=== PATIENT | female | born 1985 | race Caucasian/White ===

== ENCOUNTER 2019-11-01 16:40 | Inpatient (IN) | payer BC ==
[2019-11-01] MEDS ORDERED: Sodium Chloride 0.9% 10 ML Syringe FLUSH PRN (16:45)
[2019-11-01] MEDS ORDERED: Oxytocin/Lactated Ringers 10 UNIT/1,000 ML BAG IV SCH ×2 (16:45)
[2019-11-01] MEDS ORDERED: Ondansetron 4 MG/2 ML SDV IVPUSH PRN (16:45)
[2019-11-01] MEDS: Lactated Ringers 1,000 ML IV SCH ×2 (17:30→21:00)
[2019-11-01] MEDS ORDERED: diphenhydrAMINE 50 MG/ML SDV IVPUSH PRN (19:42)
[2019-11-01] MEDS ORDERED: Bupivacaine/fentaNYL/NS 100 ML Bag EPIDUR PRN (19:42)
[2019-11-01] MEDS ORDERED: fentaNYL 100 MCG/2 ML SDV EPIDUR PRN (19:42)
[2019-11-01] MEDS ORDERED: ePHEDrine 50 MG/ML SDV IVPUSH PRN (19:42)
--- NOTE | 2019-11-01 20:15 | PCM.LDHP ---
L&D History of Present Illness - General Date of Service: 11/01/19 Admit Problem/Dx: Patient Status Order with Admit Dx/Problem 11/01/19 16:46 Patient Status [ADT] Routine Admission Diagnosis/Problem Admission Diagnosis/Problem Source of Information: Patient History Limitations: Reports: No Limitations - History of Present Illness Introduction:: 34 year old G1 with elevated blood pressures in clinic. Gradually elevating over past weeks. 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: Social & Family History - Tobacco Use Smoking Status *Q: Never Smoker Second Hand Smoke Exposure: No - Caffeine Use Caffeine Use: Reports: None - Recreational Drug Use Recreational Drug Use: No H&P Review of Systems - Review of Systems: Review Of Systems: See Below General: Reports: No Symptoms HEENT: Reports: No Symptoms Pulmonary: Reports: No Symptoms Cardiovascular: Reports: No Symptoms Gastrointestinal: Reports: No Symptoms Genitourinary: Reports: No Symptoms Musculoskeletal: Reports: No Symptoms Skin: Reports: No Symptoms Psychiatric: Reports: No Symptoms Neurological: Reports: No Symptoms Hematologic/Lymphatic: Reports: No Symptoms Immunologic: Reports: No Symptoms L&D Exam - Exam Exam: See Below - Vital Signs Vital Signs: Last Vital Signs Temp 37.6 C 11/01/19 16:46 Pulse 104 H 11/01/19 16:46 Resp 16 11/01/19 16:46 BP 136/84 11/01/19 16:46 Pulse Ox Weight: 87.997 kg - OB Specific Contraction Intensity: Moderate to Strong Movement: Active Heart Tones: Present Heart Rate (FHR) Variability: Moderate (6-25 bmp) - Lobo Score Lobo Score Cervix Position: Midposition Lobo Score Consistency: Soft Lobo Score Effacement: 51-70% Lobo Score Dilation: 3-4 cm Lobo Score Infant's Station: -2 Lobo Score Total: 8 - Exam General: Alert, Oriented HEENT: PERRLA, Conjunctiva Clear, EACs Clear, EOMI, Hearing Intact, Mucosa Moist & [place], Nares Patent, Normal Nasal Septum, Posterior Pharynx Clear, TMs Clear Neck: Supple, Trachea Midline Lungs: Clear to Auscultation, Normal Respiratory Effort Cardiovascular: Regular Rate, Regular Rhythm GI/Abdominal Exam: Normal Bowel Sounds, Soft, Non-Tender, No Organomegaly, No Distention, No Abnormal Bruit, No Mass, Pelvis Stable Back Exam: Normal Inspection, Full Range of Motion Extremities: Normal Inspection, Normal Range of Motion, Non-Tender, No Pedal Edema, Normal Capillary Refill Skin: Warm, Dry, Intact Neurological: Cranial Nerves Intact, Reflexes Equal Bilateral Psychiatric: Alert, Normal Affect, Normal Mood - Patient Data Lab Results Last 24 hrs: Laboratory Results - last 24 hr 11/01/19 11/01/19 11/01/19 Range/Units 16:50 17:16 17:16 WBC 10.02 (3.98-10.04) K/mm3 RBC 3.98 (3.98-5.22) M/mm3 Hgb 11.0 L (11.2-15.7) gm/dl Hct 34.4 (34.1-44.9) % MCV 86.4 (79.4-94.8) fl MCH 27.6 (25.6-32.2) pg MCHC 32.0 L (32.2-35.5) g/dl RDW Std Deviation 43.2 (36.4-46.3) fL Plt Count 281 (182-369) K/mm3 MPV 10.7 (9.4-12.3) fl Neut % (Auto) 77.4 H (34.0-71.1) % Lymph % (Auto) 14.6 L (19.3-51.7) % [place] % (Auto) 6.5 (4.7-12.5) % Eos % (Auto) 0.8 (0.7-5.8) Baso % (Auto) 0.0 L (0.1-1.2) % Neut # (Auto) 7.76 H (1.56-6.13) K/mm3 Lymph # (Auto) 1.46 (1.18-3.74) K/mm3 [place] # (Auto) 0.65 H (0.24-0.36) K/mm3 Eos # (Auto) 0.08 (0.04-0.36) K/mm3 Baso # (Auto) 0.00 L (0.01-0.08) K/mm3 Sodium 139 (136-145) mEq/L Potassium 3.3 L (3.5-5.1) mEq/L Chloride 105 (98-107) mEq/L Carbon Dioxide 22 (21-32) mEq/L Anion Gap 15.3 H (5-15) BUN 7 (7-18) mg/dL Creatinine 0.6 (0.55-1.02) mg/dL Est Cr Clr Drug Dosing TNP Estimated GFR (MDRD) > 60 (>60) mL/min BUN/Creatinine Ratio 11.7 L (14-18) Glucose 103 (74-106) mg/dL Calcium 9.1 (8.5-10.1) mg/dL Total Bilirubin 0.3 (0.2-1.0) mg/dL AST 17 (15-37) U/L ALT 20 (14-59) U/L Alkaline Phosphatase 121 H (46-116) U/L Total Protein 6.5 (6.4-8.2) g/dl Albumin 2.6 L (3.4-5.0) g/dl Globulin 3.9 gm/dL Albumin/Globulin Ratio 0.7 L (1-2) Ur Random Creatinine 73.1 (30.0-125.0) mg/dL U Random Total Protein 31.6 H (0.0-11.8) mg/dL Protein/Creatinin Ratio 432.3 H (0-149) mg/g Result Diagrams: 11/01/19 17:16 11/01/19 17:16 Problem List Initiated/Reviewed/Updated: Yes Orders Last 24hrs: Active Orders 24 hr Category Date Time Status Patient Status [ADT] Routine ADT 11/01/19 16:46 Active Activity as Tolerated [RC] PFP Care 11/01/19 16:46 Active Communication Order [RC] ASDIRECTED Care 11/01/19 16:46 Active Communication Order [RC] ASDIRECTED Care 11/01/19 19:42 Active Cooling Warming Measures [RC] ASDIRECTED Care 11/01/19 19:42 Active Heart Tones [RC] ASDIRECTED Care 11/01/19 16:47 Active Non Stress Test [RC] PER UNIT ROUTINE Care 11/01/19 16:46 Active Notify Provider [RC] ASDIRECTED Care 11/01/19 19:42 Active Notify Provider [RC] PFP Care 11/01/19 16:46 Active Notify Provider [RC] PRN Care 11/01/19 16:46 Active Oxygen Therapy [RC] ASDIRECTED Care 11/01/19 19:42 Active Peripheral IV Care [RC] . DIRECTED Care 11/01/19 16:47 Active Pulse Oximetry [RC] ASDIRECTED Care 11/01/19 19:42 Active Pump Management, Intrathecal [RC] ASDIRECTED Care 11/01/19 16:47 Active Vital Signs [RC] PER UNIT ROUTINE Care 11/01/19 16:46 Active Vital Signs [RC] Q1H Care 11/01/19 19:41 Active Regular Diet [DIET] Diet 11/01/19 Breakfast Active RAPID PLASMA REAGIN,RPR [CHEM] Routine Lab 11/01/19 17:16 Received Bupivacaine/fentaNYL/NS [fentaNYL/Bupivacaine/NS 2 MCG- Med 11/01/19 19:42 Active 0.125% 100 ML] 0 ml EPIDUR CONTINUOUS PRN Lactated Ringers [Ringers, Lactated] 1,000 ml Med 11/01/19 16:45 Active IV ASDIRECTED Ondansetron [Zofran] Med 11/01/19 16:45 Active 4 mg IVPUSH Q4H PRN Oxytocin/Lactated Ringers [Pitocin in LR 10 Units/1,000 Med 11/01/19 16:45 Active ML] 10 unit in 1,000 ml IV .CONTINUOUS Oxytocin/Lactated Ringers [Pitocin in LR 10 Units/1,000 Med 11/01/19 16:45 Active ML] 10 unit in 1,000 ml IV TITRATE Sodium Chloride 0.9% [Saline Flush] Med 11/01/19 16:45 Active 10 ml FLUSH ASDIRECTED PRN diphenhydrAMINE [Benadryl] Med 11/01/19 19:42 Active 25 mg IVPUSH Q6H PRN ePHEDrine [ePHEDrine sulfate] Med 11/01/19 19:42 Active 5 mg IVPUSH ASDIRECTED PRN fentaNYL [Sublimaze] Med 11/01/19 19:42 Active 100 mcg EPIDUR Q3H PRN Electronic Heart Tones Ext w TOCO [WOMSER] Oth 11/01/19 16:46 Ordered Routine Electronic Heart Tones Internal [WOMSER] Per Unit Oth 11/01/19 16:46 Ordered Routine Peripheral IV Insertion Adult [OM.PC] Routine Oth 11/01/19 16:46 Ordered Resuscitation Status Routine Resus Stat 11/01/19 16:45 Ordered Medication Orders Diphenhydramine HCl (Benadryl) 25 mg IVPUSH Q6H PRN PRN Reason: Itching Ephedrine Sulfate (Ephedrine Sulfate) 5 mg IVPUSH ASDIRECTED PRN PRN Reason: HYPOTENTSION Fentanyl (Sublimaze) 100 mcg EPIDUR Q3H PRN PRN Reason: Pain Fentanyl/Bupivacaine HCl (Fentanyl/Bupivacaine/Ns 2 Mcg-0.125% 100 Ml) 0 ml EPIDUR CONTINUOUS PRN PRN Reason: Pain Lactated Ringer's (Ringers, Lactated) 1,000 mls @ 100 mls/hr IV ASDIRECTED RONNY Last Admin: 11/01/19 17:30 Dose: 100 mls/hr Oxytocin/Lactated Ringer's (Pitocin In Lr 10 Units/1,000 Ml) 10 unit in 1,000 mls @ 12 mls/hr IV TITRATE RONNY; Protocol Last Admin: 11/01/19 17:34 Dose: 2 munits/min, 12 mls/hr Oxytocin/Lactated Ringer's (Pitocin In Lr 10 Units/1,000 Ml) 10 unit in 1,000 mls @ 500 mls/hr IV .CONTINUOUS RONNY Ondansetron HCl (Zofran) 4 mg IVPUSH Q4H PRN PRN Reason: Nausea/Vomiting Sodium Chloride (Saline Flush) 10 ml FLUSH ASDIRECTED PRN PRN Reason: Keep Vein Open Assessment/Plan Comment:: Admit. PIH labs Epidural prn Anticipate
[2019-11-02] MEDS ORDERED: Oxytocin/Lactated Ringers 20 UNIT/1,000 ML BAG IV SCH (01:45)
[2019-11-02] MEDS: Oxytocin/Lactated Ringers 20 UNIT/1,000 ML BAG IV SCH (02:37)
[2019-11-02] MEDS: Lactated Ringers 1,000 ML IV SCH ×3 (08:55→17:40)
[2019-11-02] MEDS ORDERED: fentaNYL 100 MCG/2 ML SDV EPIDUR PRN (14:32)
[2019-11-02] MEDS ORDERED: ePHEDrine 50 MG/ML SDV IVPUSH PRN (14:32)
[2019-11-02] MEDS ORDERED: diphenhydrAMINE 50 MG/ML SDV IVPUSH PRN (14:32)
[2019-11-02] MEDS ORDERED: Bupivacaine/fentaNYL/NS 100 ML Bag EPIDUR PRN (14:32)
--- NOTE | 2019-11-02 14:57 | PCM.PREANE ---
Preanesthetic Assessment - Anesthesia/Transfusion/Family Hx Anesthesia History: No Prior Anesthesia Transfusion History: No Prior Transfusion(s) - Review of Systems General: No Symptoms Pulmonary: No Symptoms Cardiovascular: No Symptoms Gastrointestinal: No Symptoms Neurological: No Symptoms Other: Reports: None - Physical Assessment Vital Signs: Last Vital Signs Temp 98.5 F 11/01/19 20:30 Pulse 94 11/01/19 22:00 Resp 16 11/01/19 20:30 BP 132/82 11/01/19 20:30 Pulse Ox Height: 1.57 m Weight: 87.997 kg ASA Class: 2 Mental Status: Alert & Oriented x3 Airway Class: Mallampati = 2 Dentition: Reports: Normal Dentition Thyro-Mental Finger Breadths: 3 Mouth Opening Finger Breadths: 3 ROM/Head Extension: Full Lungs: Clear to Auscultation, Normal Respiratory Effort Cardiovascular: Regular Rate, Regular Rhythm - Lab Values: Laboratory Last Values WBC 10.02 K/mm3 (3.98-10.04) 11/01/19 17:16 RBC 3.98 M/mm3 (3.98-5.22) 11/01/19 17:16 Hgb 11.0 gm/dl (11.2-15.7) L 11/01/19 17:16 Hct 34.4 % (34.1-44.9) 11/01/19 17:16 MCV 86.4 fl (79.4-94.8) 11/01/19 17:16 MCH 27.6 pg (25.6-32.2) 11/01/19 17:16 MCHC 32.0 g/dl (32.2-35.5) L 11/01/19 17:16 RDW Std Deviation 43.2 fL (36.4-46.3) 11/01/19 17:16 Plt Count 281 K/mm3 (182-369) 11/01/19 17:16 MPV 10.7 fl (9.4-12.3) 11/01/19 17:16 Neut % (Auto) 77.4 % (34.0-71.1) H 11/01/19 17:16 Lymph % (Auto) 14.6 % (19.3-51.7) L 11/01/19 17:16 Cross % (Auto) 6.5 % (4.7-12.5) 11/01/19 17:16 Eos % (Auto) 0.8 (0.7-5.8) 11/01/19 17:16 Baso % (Auto) 0.0 % (0.1-1.2) L 11/01/19 17:16 Neut # (Auto) 7.76 K/mm3 (1.56-6.13) H 11/01/19 17:16 Lymph # (Auto) 1.46 K/mm3 (1.18-3.74) 11/01/19 17:16 Cross # (Auto) 0.65 K/mm3 (0.24-0.36) H 11/01/19 17:16 Eos # (Auto) 0.08 K/mm3 (0.04-0.36) 11/01/19 17:16 Baso # (Auto) 0.00 K/mm3 (0.01-0.08) L 11/01/19 17:16 Sodium 139 mEq/L (136-145) 11/01/19 17:16 Potassium 3.3 mEq/L (3.5-5.1) L 11/01/19 17:16 Chloride 105 mEq/L (98-107) 11/01/19 17:16 Carbon Dioxide 22 mEq/L (21-32) 11/01/19 17:16 Anion Gap 15.3 (5-15) H 11/01/19 17:16 BUN 7 mg/dL (7-18) 11/01/19 17:16 Creatinine 0.6 mg/dL (0.55-1.02) 11/01/19 17:16 Est Cr Clr Drug Dosing TNP 11/01/19 17:16 Estimated GFR (MDRD) > 60 mL/min (>60) 11/01/19 17:16 BUN/Creatinine Ratio 11.7 (14-18) L 11/01/19 17:16 Glucose 103 mg/dL (74-106) 11/01/19 17:16 Calcium 9.1 mg/dL (8.5-10.1) 11/01/19 17:16 Total Bilirubin 0.3 mg/dL (0.2-1.0) 11/01/19 17:16 AST 17 U/L (15-37) 11/01/19 17:16 ALT 20 U/L (14-59) 11/01/19 17:16 Alkaline Phosphatase 121 U/L (46-116) H 11/01/19 17:16 Total Protein 6.5 g/dl (6.4-8.2) 11/01/19 17:16 Albumin 2.6 g/dl (3.4-5.0) L 11/01/19 17:16 Globulin 3.9 gm/dL 11/01/19 17:16 Albumin/Globulin Ratio 0.7 (1-2) L 11/01/19 17:16 Ur Random Creatinine 73.1 mg/dL (30.0-125.0) 11/01/19 16:50 U Random Total Protein 31.6 mg/dL (0.0-11.8) H 11/01/19 16:50 Protein/Creatinin Ratio 432.3 mg/g (0-149) H 11/01/19 16:50 RPR Non-reactive (NONREACTIVE) 11/01/19 17:16 - Allergies Allergies/Adverse Reactions: Allergies Allergy/AdvReac Type Severity Reaction Status Date / Time No Known Allergies Allergy Verified 10/28/19 15:43 - Acknowledgements Anesthesia Type Planned: Epidural Pt an Appropriate Candidate for the Planned Anesthesia: Yes Alternatives and Risks of Anesthesia Discussed w Pt/Guardian: Yes Pt/Guardian Understands and Agrees with Anesthesia Plan: Yes PreAnesthesia Questionnaire - Past Health History Medical/Surgical History: Denies Medical/Surgical History Cardiovascular History: Reports: Hypertension ( induced) 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 USE Smoking Status *Q: Never Smoker Second Hand Smoke Exposure: No Recreational Drug Use History: No - HOME MEDS Home Medications: Home Meds No122/Iron/Folic Acid [ Multi Tablet] 1 each PO DAILY 10/28/19 [History] Aspirin [[place] Aspirin] 81 mg PO DAILY 11/01/19 [History] - CURRENT (IN HOUSE) MEDS Current Meds: Current Medications Diphenhydramine HCl (Benadryl) 25 mg IVPUSH Q6H PRN PRN Reason: pruritis Ephedrine Sulfate (Ephedrine Sulfate) 5 mg IVPUSH ASDIRECTED PRN PRN Reason: Hypotension Fentanyl (Sublimaze) 100 mcg EPIDUR Q3H PRN PRN Reason: Pain Fentanyl/Bupivacaine HCl (Fentanyl/Bupivacaine/Ns 2 Mcg-0.125% 100 Ml) 100 ml EPIDUR ASDIRECTED PRN PRN Reason: Pain Lactated Ringer's (Ringers, Lactated) 1,000 mls @ 100 mls/hr IV ASDIRECTED RONNY Last Admin: 11/02/19 08:55 Dose: 100 mls/hr Oxytocin/Lactated Ringer's (Pitocin In Lr 10 Units/1,000 Ml) 10 unit in 1,000 mls @ 500 mls/hr IV .CONTINUOUS RONNY Oxytocin/Lactated Ringer's (Pitocin In Lr 20 Units/1,000 Ml) 20 unit in 1,000 mls @ 66 mls/hr IV TITRATE RONNY; Protocol Last Admin: 11/02/19 02:37 Dose: 66 mls/hr Ondansetron HCl (Zofran) 4 mg IVPUSH Q4H PRN PRN Reason: Nausea/Vomiting Sodium Chloride (Saline Flush) 10 ml FLUSH ASDIRECTED PRN PRN Reason: Keep Vein Open Discontinued Medications Diphenhydramine HCl (Benadryl) 25 mg IVPUSH Q6H PRN PRN Reason: Itching Ephedrine Sulfate (Ephedrine Sulfate) 5 mg IVPUSH ASDIRECTED PRN PRN Reason: HYPOTENTSION Fentanyl (Sublimaze) 100 mcg EPIDUR Q3H PRN PRN Reason: Pain Fentanyl/Bupivacaine HCl (Fentanyl/Bupivacaine/Ns 2 Mcg-0.125% 100 Ml) 0 ml EPIDUR CONTINUOUS PRN PRN Reason: Pain Oxytocin/Lactated Ringer's (Pitocin In Lr 10 Units/1,000 Ml) 10 unit in 1,000 mls @ 12 mls/hr IV TITRATE RONNY; Protocol Last Titration: 11/02/19 01:00 Dose: 20 munits/min, 120 mls/hr Oxytocin/Lactated Ringer's (Pitocin In Lr 20 Units/1,000 Ml) 20 unit in 1,000 mls @ 66 mls/hr IV TITRATE RONNY; Protocol
--- NOTE | 2019-11-02 16:18 | PCM.PNLD ---
Labor Progress Note - VS & Meds Vital Signs: Last Vital Signs Temp 36.9 C 11/01/19 20:30 Pulse 94 11/01/19 22:00 Resp 16 11/01/19 20:30 BP 132/82 11/01/19 20:30 Pulse Ox Active Medications: Current Medications Diphenhydramine HCl (Benadryl) 25 mg IVPUSH Q6H PRN PRN Reason: pruritis Ephedrine Sulfate (Ephedrine Sulfate) 5 mg IVPUSH ASDIRECTED PRN PRN Reason: Hypotension Fentanyl (Sublimaze) 100 mcg EPIDUR Q3H PRN PRN Reason: Pain Last Admin: 11/02/19 15:06 Dose: 100 mcg Fentanyl/Bupivacaine HCl (Fentanyl/Bupivacaine/Ns 2 Mcg-0.125% 100 Ml) 100 ml EPIDUR ASDIRECTED PRN PRN Reason: Pain Last Admin: 11/02/19 15:06 Dose: 100 ml Lactated Ringer's (Ringers, Lactated) 1,000 mls @ 100 mls/hr IV ASDIRECTED RONNY Last Admin: 11/02/19 15:07 Dose: 100 mls/hr Oxytocin/Lactated Ringer's (Pitocin In Lr 10 Units/1,000 Ml) 10 unit in 1,000 mls @ 500 mls/hr IV .CONTINUOUS RONNY Oxytocin/Lactated Ringer's (Pitocin In Lr 20 Units/1,000 Ml) 20 unit in 1,000 mls @ 66 mls/hr IV TITRATE RONNY; Protocol Last Admin: 11/02/19 02:37 Dose: 66 mls/hr Ondansetron HCl (Zofran) 4 mg IVPUSH Q4H PRN PRN Reason: Nausea/Vomiting Sodium Chloride (Saline Flush) 10 ml FLUSH ASDIRECTED PRN PRN Reason: Keep Vein Open Discontinued Medications Diphenhydramine HCl (Benadryl) 25 mg IVPUSH Q6H PRN PRN Reason: Itching Ephedrine Sulfate (Ephedrine Sulfate) 5 mg IVPUSH ASDIRECTED PRN PRN Reason: HYPOTENTSION Fentanyl (Sublimaze) 100 mcg EPIDUR Q3H PRN PRN Reason: Pain Fentanyl/Bupivacaine HCl (Fentanyl/Bupivacaine/Ns 2 Mcg-0.125% 100 Ml) 0 ml EPIDUR CONTINUOUS PRN PRN Reason: Pain Oxytocin/Lactated Ringer's (Pitocin In Lr 10 Units/1,000 Ml) 10 unit in 1,000 mls @ 12 mls/hr IV TITRATE RONNY; Protocol Last Titration: 11/02/19 01:00 Dose: 20 munits/min, 120 mls/hr Oxytocin/Lactated Ringer's (Pitocin In Lr 20 Units/1,000 Ml) 20 unit in 1,000 mls @ 66 mls/hr IV TITRATE RONNY; Protocol - Uterine Contractions Uterine Monitoring Mode: External [place] Contraction Intensity: Mild to Moderate - Monitoring Monitor Mode: External Ultrasound Heart Rate (FHR) Variability: Moderate (6-25 bmp) Strip Review: Category I - Vaginal Exam Dilation (cm): 4 Effacement (Percent): 80 Station: -2 - Labor Progress (Free Text) Labor Progress: Minimal progress over night despite 26 mu pitocin. AROM forebag.
--- NOTE | 2019-11-02 16:20 | PCM.PNLD ---
Labor Progress Note - VS & Meds Vital Signs: Last Vital Signs Temp 36.9 C 11/01/19 20:30 Pulse 94 11/01/19 22:00 Resp 16 11/01/19 20:30 BP 132/82 11/01/19 20:30 Pulse Ox Active Medications: Current Medications Diphenhydramine HCl (Benadryl) 25 mg IVPUSH Q6H PRN PRN Reason: pruritis Ephedrine Sulfate (Ephedrine Sulfate) 5 mg IVPUSH ASDIRECTED PRN PRN Reason: Hypotension Fentanyl (Sublimaze) 100 mcg EPIDUR Q3H PRN PRN Reason: Pain Last Admin: 11/02/19 15:06 Dose: 100 mcg Fentanyl/Bupivacaine HCl (Fentanyl/Bupivacaine/Ns 2 Mcg-0.125% 100 Ml) 100 ml EPIDUR ASDIRECTED PRN PRN Reason: Pain Last Admin: 11/02/19 15:06 Dose: 100 ml Lactated Ringer's (Ringers, Lactated) 1,000 mls @ 100 mls/hr IV ASDIRECTED RONNY Last Admin: 11/02/19 15:07 Dose: 100 mls/hr Oxytocin/Lactated Ringer's (Pitocin In Lr 10 Units/1,000 Ml) 10 unit in 1,000 mls @ 500 mls/hr IV .CONTINUOUS RONNY Oxytocin/Lactated Ringer's (Pitocin In Lr 20 Units/1,000 Ml) 20 unit in 1,000 mls @ 66 mls/hr IV TITRATE RONNY; Protocol Last Admin: 11/02/19 02:37 Dose: 66 mls/hr Ondansetron HCl (Zofran) 4 mg IVPUSH Q4H PRN PRN Reason: Nausea/Vomiting Sodium Chloride (Saline Flush) 10 ml FLUSH ASDIRECTED PRN PRN Reason: Keep Vein Open Discontinued Medications Diphenhydramine HCl (Benadryl) 25 mg IVPUSH Q6H PRN PRN Reason: Itching Ephedrine Sulfate (Ephedrine Sulfate) 5 mg IVPUSH ASDIRECTED PRN PRN Reason: HYPOTENTSION Fentanyl (Sublimaze) 100 mcg EPIDUR Q3H PRN PRN Reason: Pain Fentanyl/Bupivacaine HCl (Fentanyl/Bupivacaine/Ns 2 Mcg-0.125% 100 Ml) 0 ml EPIDUR CONTINUOUS PRN PRN Reason: Pain Oxytocin/Lactated Ringer's (Pitocin In Lr 10 Units/1,000 Ml) 10 unit in 1,000 mls @ 12 mls/hr IV TITRATE RONNY; Protocol Last Titration: 11/02/19 01:00 Dose: 20 munits/min, 120 mls/hr Oxytocin/Lactated Ringer's (Pitocin In Lr 20 Units/1,000 Ml) 20 unit in 1,000 mls @ 66 mls/hr IV TITRATE RONNY; Protocol - Uterine Contractions Uterine Monitoring Mode: External [place] Contraction Intensity: Mild to Moderate - Monitoring Monitor Mode: External Ultrasound Heart Rate (FHR) Variability: Moderate (6-25 bmp) Strip Review: Category I - Vaginal Exam Dilation (cm): 5 Effacement (Percent): 80 Station: -2 - Labor Progress (Free Text) Labor Progress: Epidural in place Doing well with that pain rehman. Blood pressures lower with some decreased variability, occasional late decelerations and some deep decelerations. Recovers well to position change. Consider ephedrine if no improvement.
[2019-11-02] MEDS ORDERED: Acetaminophen 325 MG Tab PO PRN (18:42)
[2019-11-02] MEDS ORDERED: Clindamycin Phosphate 900 MG in Sodium Chloride 0.9% 100 ML IV ONE (18:45)
[2019-11-02] MEDS ORDERED: Sodium Chloride 0.9% 100 ML ONE (18:59)
--- NOTE | 2019-11-02 20:11 | PCM.PNLD ---
Labor Progress Note - VS & Meds Vital Signs: Last Vital Signs Temp 36.9 C 11/01/19 20:30 Pulse 94 11/01/19 22:00 Resp 16 11/01/19 20:30 BP 132/82 11/01/19 20:30 Pulse Ox Active Medications: Current Medications Acetaminophen (Tylenol) 975 mg PO Q4H PRN PRN Reason: Fever Last Admin: 11/02/19 19:05 Dose: 975 mg Diphenhydramine HCl (Benadryl) 25 mg IVPUSH Q6H PRN PRN Reason: pruritis Ephedrine Sulfate (Ephedrine Sulfate) 5 mg IVPUSH ASDIRECTED PRN PRN Reason: Hypotension Fentanyl (Sublimaze) 100 mcg EPIDUR Q3H PRN PRN Reason: Pain Last Admin: 11/02/19 15:06 Dose: 100 mcg Fentanyl/Bupivacaine HCl (Fentanyl/Bupivacaine/Ns 2 Mcg-0.125% 100 Ml) 100 ml EPIDUR ASDIRECTED PRN PRN Reason: Pain Last Admin: 11/02/19 15:06 Dose: 100 ml Lactated Ringer's (Ringers, Lactated) 1,000 mls @ 100 mls/hr IV ASDIRECTED RONNY Last Admin: 11/02/19 17:40 Dose: 100 mls/hr Oxytocin/Lactated Ringer's (Pitocin In Lr 10 Units/1,000 Ml) 10 unit in 1,000 mls @ 500 mls/hr IV .CONTINUOUS RONNY Oxytocin/Lactated Ringer's (Pitocin In Lr 20 Units/1,000 Ml) 20 unit in 1,000 mls @ 66 mls/hr IV TITRATE RONNY; Protocol Last Admin: 11/02/19 02:37 Dose: 66 mls/hr Ondansetron HCl (Zofran) 4 mg IVPUSH Q4H PRN PRN Reason: Nausea/Vomiting Sodium Chloride (Saline Flush) 10 ml FLUSH ASDIRECTED PRN PRN Reason: Keep Vein Open Discontinued Medications Diphenhydramine HCl (Benadryl) 25 mg IVPUSH Q6H PRN PRN Reason: Itching Ephedrine Sulfate (Ephedrine Sulfate) 5 mg IVPUSH ASDIRECTED PRN PRN Reason: HYPOTENTSION Fentanyl (Sublimaze) 100 mcg EPIDUR Q3H PRN PRN Reason: Pain Fentanyl/Bupivacaine HCl (Fentanyl/Bupivacaine/Ns 2 Mcg-0.125% 100 Ml) 0 ml EPIDUR CONTINUOUS PRN PRN Reason: Pain Gentamicin Sulfate (Pharmacy To Dose - Gentamicin) 1 dose .XX ASDIRECTED RONNY Oxytocin/Lactated Ringer's (Pitocin In Lr 10 Units/1,000 Ml) 10 unit in 1,000 mls @ 12 mls/hr IV TITRATE RONNY; Protocol Last Titration: 11/02/19 01:00 Dose: 20 munits/min, 120 mls/hr Oxytocin/Lactated Ringer's (Pitocin In Lr 20 Units/1,000 Ml) 20 unit in 1,000 mls @ 66 mls/hr IV TITRATE RONNY; Protocol Clindamycin Phosphate 900 mg/ (Sodium Chloride) 106 mls @ 200 mls/hr IV ONETIME ONE Stop: 11/02/19 19:16 Last Admin: 11/02/19 19:16 Dose: 200 mls/hr Gentamicin Sulfate 100 mg/ (Sodium Chloride) 102.5 mls @ 205 mls/hr IV ONETIME ONE Stop: 11/02/19 19:29 Sodium Chloride (Normal Saline) Confirm Administered Dose 100 mls @ as directed .ROUTE .STK-MED ONE Stop: 11/02/19 19:00 - Uterine Contractions Uterine Monitoring Mode: External [place] Contraction Intensity: Mild to Moderate - Monitoring Monitor Mode: External Ultrasound Heart Rate (FHR) Variability: Moderate (6-25 bmp) Strip Review: Category II - Vaginal Exam Dilation (cm): 8 Effacement (Percent): 90 Station: -1 Cervical Position: Midposition - Labor Progress (Free Text) Labor Progress: Steady progress since last exam however febrile starting about 45 minutes ago. Antibiotics initiated for chorioamnionitis. Some deep variable decelerations and now tachycardia and occasional late decelerations. Discussed possibility of with patient and spouse. They voice understanding and wish to proceed with labor at this point.
[2019-11-02] MEDS ORDERED: Metoclopramide 10 MG/2 ML SDV IVPUSH ONE (22:04)
[2019-11-02] MEDS ORDERED: Citric Acid/Sodium Citrate Solution 30 ML Cup PO ONE (22:04)
[2019-11-02] MEDS ORDERED: Metoclopramide 10 MG/2 ML SDV ONE (22:08)
[2019-11-02] MEDS ORDERED: Citric Acid/Sodium Citrate Solution 30 ML Cup ONE (22:08)
[2019-11-02] MEDS ORDERED: Azithromycin 500 MG in Sodium Chloride 0.9% 250 ML IV ONE (22:09)
--- NOTE | 2019-11-02 22:10 | PCM.PNLD ---
Labor Progress Note - VS & Meds Vital Signs: Last Vital Signs Temp 36.9 C 11/01/19 20:30 Pulse 94 11/01/19 22:00 Resp 16 11/01/19 20:30 BP 132/82 11/01/19 20:30 Pulse Ox Active Medications: Current Medications Acetaminophen (Tylenol) 975 mg PO Q4H PRN PRN Reason: Fever Last Admin: 11/02/19 19:05 Dose: 975 mg Diphenhydramine HCl (Benadryl) 25 mg IVPUSH Q6H PRN PRN Reason: pruritis Ephedrine Sulfate (Ephedrine Sulfate) 5 mg IVPUSH ASDIRECTED PRN PRN Reason: Hypotension Fentanyl (Sublimaze) 100 mcg EPIDUR Q3H PRN PRN Reason: Pain Last Admin: 11/02/19 15:06 Dose: 100 mcg Fentanyl/Bupivacaine HCl (Fentanyl/Bupivacaine/Ns 2 Mcg-0.125% 100 Ml) 100 ml EPIDUR ASDIRECTED PRN PRN Reason: Pain Last Admin: 11/02/19 15:06 Dose: 100 ml Lactated Ringer's (Ringers, Lactated) 1,000 mls @ 100 mls/hr IV ASDIRECTED RONNY Last Admin: 11/02/19 17:40 Dose: 100 mls/hr Oxytocin/Lactated Ringer's (Pitocin In Lr 10 Units/1,000 Ml) 10 unit in 1,000 mls @ 500 mls/hr IV .CONTINUOUS RONNY Oxytocin/Lactated Ringer's (Pitocin In Lr 20 Units/1,000 Ml) 20 unit in 1,000 mls @ 66 mls/hr IV TITRATE RONNY; Protocol Last Admin: 11/02/19 02:37 Dose: 66 mls/hr Ondansetron HCl (Zofran) 4 mg IVPUSH Q4H PRN PRN Reason: Nausea/Vomiting Sodium Chloride (Saline Flush) 10 ml FLUSH ASDIRECTED PRN PRN Reason: Keep Vein Open Discontinued Medications Citric Acid/Sodium Citrate (Bicitra Solution) 30 ml PO ONETIME ONE Stop: 11/02/19 22:05 Diphenhydramine HCl (Benadryl) 25 mg IVPUSH Q6H PRN PRN Reason: Itching Ephedrine Sulfate (Ephedrine Sulfate) 5 mg IVPUSH ASDIRECTED PRN PRN Reason: HYPOTENTSION Fentanyl (Sublimaze) 100 mcg EPIDUR Q3H PRN PRN Reason: Pain Fentanyl/Bupivacaine HCl (Fentanyl/Bupivacaine/Ns 2 Mcg-0.125% 100 Ml) 0 ml EPIDUR CONTINUOUS PRN PRN Reason: Pain Gentamicin Sulfate (Pharmacy To Dose - Gentamicin) 1 dose .XX ASDIRECTED RONNY Oxytocin/Lactated Ringer's (Pitocin In Lr 10 Units/1,000 Ml) 10 unit in 1,000 mls @ 12 mls/hr IV TITRATE RONNY; Protocol Last Titration: 11/02/19 01:00 Dose: 20 munits/min, 120 mls/hr Oxytocin/Lactated Ringer's (Pitocin In Lr 20 Units/1,000 Ml) 20 unit in 1,000 mls @ 66 mls/hr IV TITRATE RONNY; Protocol Clindamycin Phosphate 900 mg/ (Sodium Chloride) 106 mls @ 200 mls/hr IV ONETIME ONE Stop: 11/02/19 19:16 Last Admin: 11/02/19 19:16 Dose: 200 mls/hr Gentamicin Sulfate 100 mg/ (Sodium Chloride) 102.5 mls @ 205 mls/hr IV ONETIME ONE Stop: 11/02/19 19:29 Last Admin: 11/02/19 20:23 Dose: 205 mls/hr Sodium Chloride (Normal Saline) Confirm Administered Dose 100 mls @ as directed .ROUTE .STK-MED ONE Stop: 11/02/19 19:00 Metoclopramide HCl (Reglan) 10 mg IVPUSH ONETIME ONE Stop: 11/02/19 22:05 - Uterine Contractions Uterine Monitoring Mode: External [place] Contraction Intensity: Mild to Moderate - Monitoring Monitor Mode: External Ultrasound Heart Rate (FHR) Variability: Moderate (6-25 bmp) Strip Review: Category II - Vaginal Exam Dilation (cm): 10 Effacement (Percent): 100 Station: -1 Cervical Position: Midposition - Labor Progress (Free Text) Labor Progress: Minimal progress with pushing, continued tachycardia, deep variables with minimal to no descent over last hour. Discussed recommendation of .
[2019-11-02] MEDS ORDERED: Bupivacaine 0.5% 30 ML SDV ONE (22:23)
[2019-11-02] MEDS ORDERED: fentaNYL 100 MCG/2 ML SDV ONE (22:30)
[2019-11-02] MEDS ORDERED: ceFAZolin 1 GM Vial ONE (22:39)
[2019-11-02] MEDS ORDERED: Oxytocin 10 Units/1 ML SDV ONE (22:40)
[2019-11-02] MEDS ORDERED: Morphine PF 10 MG/10 ML SDV ONE (23:03)
[2019-11-02] MEDS ORDERED: Lactated Ringers 1,000 ML ONE (23:08)
--- NOTE | 2019-11-02 23:31 | PCM.OPNOTE ---
- General Post-Op/Procedure Note Date of Surgery/Procedure: 11/02/19 Operative Procedure(s): primary section Findings: Viable female, weight 8#10oz, 8/9 APGARS, normal uterus tubes and ovaries, OP infant Pre Op Diagnosis: Non-reassuring monitoring, arrest of descent, chorioamnionitis Post-Op Diagnosis: Same Anesthesia Technique: Epidural Primary Surgeon: Kristie Palma Anesthesia Provider: Biju Tsai Machine Etcher: Sandi Roberson Fluid Replacement, Intraop: 1,200 Output, Urine Amount: 150 EBL in mLs: 800 Complications: None Condition: Good Free Text/Narrative:: Intake & Output 11/02/19 11/02/19 11/03/19 14:59 22:59 06:59 Intake Total 440 Balance 440 The patient was taken to the operating room where epidural anesthesia was dosed to surgical levels without difficulty. The patient was prepped and draped in the usual sterile fashion in the dorsal supine position with a leftward tilt. A Pfannenstiel skin incision was made with the scalpel and carried through to the underlying layer of fascia. The fascia was incised in the midline and extended laterally using Valdez scissors. Lana clamps were used to elevate the superior aspect of the fascial incision, which was elevated, and the underlying rectus muscles were dissected off bluntly and using Valdez scissors. Attention was then turned to the inferior aspect of the fascial incision, which in similar fashion was grasped with Lana clamps, elevated, and the underlying rectus muscles were dissected off bluntly and using the valdez. The rectus muscles were dissected in the midline. The peritoneum was entered bluntly; this incision was extended superiorly and inferiorly with good visualization of the bladder. The bladder blade was inserted. The vesicouterine peritoneum was identified and entered sharply using Metzenbaum scissors. This incision was extended laterally and the bladder flap was created digitally. The bladder blade was reinserted. The lower uterine segment was incised in a transverse fashion using the scalpel and with digital traction. Clear fluid was noted. The infant was subsequently delivered by flexing the head to the incision. Body and shoulders followed without difficulty. The cord was clamped and cut. The infant was subsequently handed to the awaiting webbing seamer pound net whose presence had been requested.. The placenta was delivered spontaneously intact with a three-vessel cord noted. The uterus was exteriorized and cleared of all clots and debris. The uterine incision was repaired in 2 layers using 0 monocryl. Hemostasis was visualized. Hemostasis was visualized bilaterally. The uterus was returned to the abdomen. The uterine incision was reexamined and it was noted to be hemostatic. The pelvis was copiously irrigated. The fascia was closed with 1 PDS suture, and the skin was closed with 3-0 monocryl. Sponge, lap, and instrument counts were correct x2. The patient was stable at the completion of the procedure and was subsequently transferred to the recovery room in stable condition.
--- NOTE | 2019-11-02 23:40 | PCM.POSTAN ---
POST ANESTHESIA ASSESSMENT - MENTAL STATUS Mental Status: Alert, Oriented - VITAL SIGNS Vital Signs: Last Vital Signs Temp 99.5 F 11/02/19 23:27 Pulse 94 11/01/19 22:00 Resp 16 11/02/19 23:27 BP 116/69 11/02/19 23:27 Pulse Ox 96 11/02/19 23:27 - RESPIRATORY Respiratory Status: Respiratory Rate WNL, Airway Patent, O2 Saturation Stable - CARDIOVASCULAR CV Status: Blood Pressure Stable, Elevated Pulse Rate - GASTROINTESTINAL GI Status: No Symptoms - PAIN Pain Score: 0 (post epidural) - POST OP HYDRATION Hydration Status: Adequate & Stable
[2019-11-02] MEDS ORDERED: Ketorolac 30 MG/ML SDV IVPUSH PRN (23:41)
[2019-11-03] MEDS ORDERED: Dextrose 5%-Lactated Ringers 1,000 ML IV SCH (00:26)
[2019-11-03] MEDS ORDERED: Gentamicin 40 MG/ML 2 ML Vial IV SCH (00:26)
[2019-11-03] MEDS ORDERED: Witch Hazel Medicated Pads 40/Jar TOP PRN (00:26)
[2019-11-03] MEDS ORDERED: Naloxone 0.4 MG/ML SDV IVPUSH PRN (00:26)
[2019-11-03] MEDS ORDERED: Clindamycin Phosphate 900 MG in Sodium Chloride 0.9% 100 ML IV ONE (00:26)
[2019-11-03] MEDS ORDERED: ePHEDrine 50 MG/ML SDV IVPUSH PRN (00:26)
[2019-11-03] MEDS ORDERED: diphenhydrAMINE 50 MG/ML SDV IVPUSH PRN (00:26)
[2019-11-03] MEDS ORDERED: Clindamycin Phosphate in D5W 900 MG in Premix Bag 1 BAG IV ONE ×2 (00:45)
[2019-11-03] MEDS: Ketorolac 30 MG/ML SDV IVPUSH SCH ×3 (01:17→12:32)
--- NOTE | 2019-11-03 07:28 | PCM48HPAN ---
Post Anesthesia Note - EVALUATION WITHIN 48HRS OF ANESTHETIC Vital Signs in Normal Range: Yes Patient Participated in Evaluation: Yes Respiratory Function Stable: Yes Airway Patent: Yes Cardiovascular Function Stable: Yes Hydration Status Stable: Yes Pain Control Satisfactory: Yes Nausea and Vomiting Control Satisfactory: Yes Mental Status Recovered: Yes Vital Signs: Last Vital Signs Temp 36.9 C 11/03/19 06:00 Pulse 92 11/03/19 04:25 Resp 14 11/03/19 06:00 BP 127/57 L 11/03/19 04:25 Pulse Ox 99 11/03/19 06:00 - COMMENTS/OBSERVATIONS Free Text/Narrative:: Comfort has been up moving around with no complaints. No further questions this time. No anesthetic complications noted.
--- NOTE | 2019-11-03 10:38 | PCM.PNPP ---
- General Info Date of Service: 11/03/19 Functional Status: Reports: Pain Controlled, Tolerating Diet, Ambulating - Review of Systems General: Reports: No Symptoms HEENT: Reports: No Symptoms Pulmonary: Reports: No Symptoms Cardiovascular: Reports: No Symptoms Gastrointestinal: Reports: No Symptoms Genitourinary: Reports: No Symptoms Musculoskeletal: Reports: No Symptoms Skin: Reports: No Symptoms Neurological: Reports: No Symptoms Psychiatric: Reports: No Symptoms - General Info Date of Service: 11/03/19 - Patient Data Vital Signs - Most Recent: Last Vital Signs Temp 36.9 C 11/03/19 08:30 Pulse 106 H 11/03/19 09:06 Resp 18 11/03/19 10:00 BP 118/42 L 11/03/19 08:30 Pulse Ox 93 L 11/03/19 09:06 Weight - Most Recent: 87.997 kg I&O - Last 24 Hours: Intake & Output 11/02/19 11/03/19 11/03/19 22:59 06:59 14:59 Intake Total 1620 Output Total 750 2900 750 Balance -750 -1280 -750 Lab Results - Last 24 Hours: Laboratory Results - last 24 hr 11/01/19 Range/Units 17:16 Blood Type A POSITIVE Gel Antibody Screen Negative Med Orders - Current: Current Medications Diphenhydramine HCl (Benadryl) 25 mg IVPUSH Q6H PRN PRN Reason: Itching or Nausea Ephedrine Sulfate (Ephedrine Sulfate) 5 mg IVPUSH SEECOMMENT PRN PRN Reason: Other Ibuprofen (Motrin) 600 mg PO Q6H PRN PRN Reason: mild pain or fever Ketorolac Tromethamine (Toradol) 30 mg IVPUSH Q6H [facility] Stop: 11/03/19 12:31 Last Admin: 11/03/19 07:20 Dose: 30 mg Naloxone HCl (Narcan) 0.1 mg IVPUSH SEECOMMENT PRN PRN Reason: Respiratory Depression [place] (Quentinckagustin) 1 pad TOP ASDIRECTED PRN PRN Reason: Pain Discontinued Medications Acetaminophen (Tylenol) 975 mg PO Q4H PRN PRN Reason: Fever Last Admin: 11/02/19 19:05 Dose: 975 mg Bupivacaine HCl (Marcaine 0.5%) Confirm Administered Dose 30 ml .ROUTE .STK-MED ONE Stop: 11/02/19 22:24 Last Admin: 11/02/19 22:48 Dose: 20 ml Cefazolin Sodium (Ancef) Confirm Administered Dose 2 gm .ROUTE .[facility]-MED ONE Stop: 11/02/19 22:40 Citric Acid/Sodium Citrate (Bicitra Solution) 30 ml PO ONETIME ONE Stop: 11/02/19 22:05 Last Admin: 11/02/19 22:15 Dose: 30 ml Citric Acid/Sodium Citrate (Bicitra Solution) Confirm Administered Dose 30 ml .ROUTE .[facility]-MED ONE Stop: 11/02/19 22:09 Diphenhydramine HCl (Benadryl) 25 mg IVPUSH Q6H PRN PRN Reason: Itching Diphenhydramine HCl (Benadryl) 25 mg IVPUSH Q6H PRN PRN Reason: pruritis Ephedrine Sulfate (Ephedrine Sulfate) 5 mg IVPUSH ASDIRECTED PRN PRN Reason: HYPOTENTSION Ephedrine Sulfate (Ephedrine Sulfate) 5 mg IVPUSH ASDIRECTED PRN PRN Reason: Hypotension Fentanyl (Sublimaze) 100 mcg EPIDUR Q3H PRN PRN Reason: Pain Fentanyl (Sublimaze) 100 mcg EPIDUR Q3H PRN PRN Reason: Pain Last Admin: 11/02/19 15:06 Dose: 100 mcg Fentanyl (Sublimaze) Confirm Administered Dose 100 mcg .ROUTE .[facility]-MED ONE Stop: 11/02/19 22:31 Fentanyl/Bupivacaine HCl (Fentanyl/Bupivacaine/Ns 2 Mcg-0.125% 100 Ml) 0 ml EPIDUR CONTINUOUS PRN PRN Reason: Pain Fentanyl/Bupivacaine HCl (Fentanyl/Bupivacaine/Ns 2 Mcg-0.125% 100 Ml) 100 ml EPIDUR ASDIRECTED PRN PRN Reason: Pain Last Admin: 11/02/19 15:06 Dose: 100 ml Gentamicin Sulfate (Pharmacy To Dose - Gentamicin) 1 dose .XX ASDIRECTED [facility] Gentamicin Sulfate (Gentamicin) 1.5 mg IV .Pharmacy to Dose [facility] Lactated Ringer's (Ringers, Lactated) 1,000 mls @ 100 mls/hr IV ASDIRECTED [facility] Last Admin: 11/02/19 17:40 Dose: 100 mls/hr Oxytocin/Lactated Ringer's (Pitocin In Lr 10 Units/1,000 Ml) 10 unit in 1,000 mls @ 12 mls/hr IV TITRATE RONNY; Protocol Last Titration: 11/02/19 01:00 Dose: 20 munits/min, 120 mls/hr Oxytocin/Lactated Ringer's (Pitocin In Lr 10 Units/1,000 Ml) 10 unit in 1,000 mls @ 500 mls/hr IV .CONTINUOUS RONNY Oxytocin/Lactated Ringer's (Pitocin In Lr 20 Units/1,000 Ml) 20 unit in 1,000 mls @ 66 mls/hr IV TITRATE RONNY; Protocol Oxytocin/Lactated Ringer's (Pitocin In Lr 20 Units/1,000 Ml) 20 unit in 1,000 mls @ 66 mls/hr IV TITRATE RONNY; Protocol Last Admin: 11/02/19 02:37 Dose: 66 mls/hr Clindamycin Phosphate 900 mg/ (Sodium Chloride) 106 mls @ 200 mls/hr IV ONETIME ONE Stop: 11/02/19 19:16 Last Admin: 11/02/19 19:16 Dose: 200 mls/hr Gentamicin Sulfate 100 mg/ (Sodium Chloride) 102.5 mls @ 205 mls/hr IV ONETIME ONE Stop: 11/02/19 19:29 Last Admin: 11/02/19 20:23 Dose: 205 mls/hr Sodium Chloride (Normal Saline) Confirm Administered Dose 100 mls @ as directed .ROUTE .STK-MED ONE Stop: 11/02/19 19:00 Azithromycin 500 mg/ Sodium (Chloride) 250 mls @ 250 mls/hr IV ONETIME ONE Stop: 11/02/19 23:08 Last Admin: 11/02/19 22:22 Dose: 250 mls/hr Lactated Ringer's (Ringers, Lactated) Confirm Administered Dose 1,000 mls @ as directed .ROUTE .STK-MED ONE Stop: 11/02/19 23:09 Dextrose/Lactated Ringer's (Dextrose 5%-Lactated Ringers) 1,000 mls @ 125 mls/ hr IV ASDIRECTED RONNY Stop: 11/03/19 08:25 Last Admin: 11/03/19 01:21 Dose: 125 mls/hr Clindamycin Phosphate 900 mg/ (Premix) 50 mls @ 100 mls/hr IV ONETIME ONE Stop: 11/03/19 01:14 Last Admin: 11/03/19 01:22 Dose: 100 mls/hr Gentamicin Sulfate 100 mg/ (Sodium Chloride) 102.5 mls @ 205 mls/hr IV ONETIME ONE Stop: 11/03/19 04:59 Last Admin: 11/03/19 04:31 Dose: 205 mls/hr Ketorolac Tromethamine (Toradol) 30 mg IVPUSH Q6H PRN PRN Reason: Pain Stop: 11/07/19 23:42 Metoclopramide HCl (Reglan) 10 mg IVPUSH ONETIME ONE Stop: 11/02/19 22:05 Last Admin: 11/02/19 22:14 Dose: 10 mg Metoclopramide HCl (Reglan) Confirm Administered Dose 10 mg .ROUTE .STK-MED ONE Stop: 11/02/19 22:09 Morphine Sulfate (Duramorph Pf) Confirm Administered Dose 10 mg .ROUTE .STK-MED ONE Stop: 11/02/19 23:04 Ondansetron HCl (Zofran) 4 mg IVPUSH Q4H PRN PRN Reason: Nausea/Vomiting Oxytocin (Pitocin) Confirm Administered Dose 20 unit .ROUTE .STK-MED ONE Stop: 11/02/19 22:41 Sodium Chloride (Saline Flush) 10 ml FLUSH ASDIRECTED PRN PRN Reason: Keep Vein Open - Interaction Infant Disposition, : [place] at Bedside Support Person: - Recovery Exam Fundal Tone: Firm Fundal Level: At Umbilicus Fundal Placement: Midline Lochia Amount: Small Lochia Color: Rubra/Red Perineum Description: Intact, Minimal Bruising/Swelling Bladder Status: Indwelling Catheter in Place - Exam General: Alert, Oriented HEENT: Pupils Equal Neck: Supple Lungs: Clear to Auscultation, Normal Respiratory Effort Cardiovascular: Regular Rate, Regular Rhythm GI/Abdominal Exam: Normal Bowel Sounds, Soft, Non-Tender, No Organomegaly, No Distention Extremities: Normal Inspection, Normal Range of Motion, Non-Tender, No Pedal Edema, Normal Capillary Refill Skin: Warm, Dry, Intact Wound/Incisions: Dressing Dry and Intact Neurological: No New Focal Deficit Psy/Mental Status: Alert, Normal Affect, Normal Mood - Problem List Review Problem List Initiated/Reviewed/Updated: Yes - My Orders Last 24 Hours: My Active Orders 11/02/19 22:36 PATIENT RETYPE [BBK] Routine 11/03/19 00:26 Communication Order [RC] PER UNIT ROUTINE Communication Order [RC] PER UNIT ROUTINE Notify Provider Intake and Out [RC] ASDIRECTED Vital Signs [RC] Q1HR Naloxone [Narcan] 0.1 mg IVPUSH SEECOMMENT PRN diphenhydrAMINE [Benadryl] 25 mg IVPUSH Q6H PRN ePHEDrine [ePHEDrine sulfate] 5 mg IVPUSH SEECOMMENT PRN witch [place] [Tucks] 1 pad TOP ASDIRECTED PRN Assess Lochia [WOMSER] Per Unit Routine Assess Uterine Involution [WOMSER] Per Unit Routine Medication Administration Instruction [OM.PC] Routine 11/03/19 00:30 Ketorolac [Toradol] 30 mg IVPUSH Q6H 11/03/19 18:30 Ibuprofen [Motrin] 600 mg PO Q6H PRN 11/03/19 Dinner Regular Diet [DIET] 11/04/19 05:11 CBC WITH AUTO DIFF [HEME] AM - Assessment Assessment:: POD1 Doing well. Kapoor can come out early if desires.
[2019-11-03] MEDS: Ibuprofen 600 MG Tab PO PRN (21:01)
[2019-11-03] MEDS ORDERED: Docusate Sodium 100 MG Cap PO PRN (21:31)
[2019-11-03] MEDS ORDERED: Acetaminophen/oxyCODONE 325-5 MG Tab PO PRN (21:31)
[2019-11-03] MEDS: Simethicone 80 MG Tab.Chew PO SCH (22:12)
[2019-11-03] MEDS: Acetaminophen/oxyCODONE 325-5 MG Tab PO PRN (22:13)
[2019-11-04] MEDS: Ibuprofen 600 MG Tab PO PRN (03:36)
--- NOTE | 2019-11-04 08:40 | PCM.DCSUM1 ---
Discharge Summary - Hospital Course HPI Initial Comments: Admitted for IOL for elevated blood pressures. Progressed slowly to complete with occasional catagory II monitoring. Pushed x1 hr with minimal progress. OP at time of . Uncomplicated course postop Diagnosis: Stroke: No - Discharge Data Discharge Date: 11/04/19 Discharge Disposition: Home, Self-Care 01 Condition: Good - Referral to Home Health Primary Care Physician: Kristie Palma MD - Patient Summary/Data Operative Procedure(s) Performed: primary section - Patient Instructions Diet: Usual Diet as Tolerated Activity: No Strenuous Activities Driving: Do Not Drive Showering/Bathing: May Shower Wound/Incision Care: Keep Operative Site/Wound Site Clean and Dry Notify Provider of: Fever, Increased Pain, Swelling and Redness, Drainage, Nausea and/or Vomiting - Discharge Plan *PRESCRIPTION DRUG MONITORING PROGRAM REVIEWED*: No *COPY OF PRESCRIPTION DRUG MONITORING REPORT IN PATIENT BRITTANY: No Home Medications: Home Meds No122/Iron/Folic Acid [ Multi Tablet] 1 each PO DAILY 10/28/19 [History] Aspirin [[place] Aspirin] 81 mg PO DAILY 11/01/19 [History] Referrals: Kristie Palma MD [Primary Care Provider] - (2 weeks) - Discharge Summary/Plan Comment DC Time >30 min.: No - General Info Date of Service: 11/04/19 Functional Status: Reports: Pain Controlled - Review of Systems General: Reports: No Symptoms HEENT: Reports: No Symptoms Pulmonary: Reports: No Symptoms Cardiovascular: Reports: No Symptoms Gastrointestinal: Reports: No Symptoms Genitourinary: Reports: No Symptoms Musculoskeletal: Reports: No Symptoms Skin: Reports: No Symptoms Neurological: Reports: No Symptoms Psychiatric: Reports: No Symptoms - Patient Data Vitals - Most Recent: Last Vital Signs Temp 36.3 C 11/04/19 03:32 Pulse 91 11/04/19 03:32 Resp 14 11/04/19 03:32 BP 122/79 11/04/19 03:32 Pulse Ox 95 11/04/19 03:32 Weight - Most Recent: 87.997 kg I&O - Last 24 hours: Intake & Output 11/03/19 11/04/19 11/04/19 22:59 06:59 14:59 Output Total 250 Balance -250 Lab Results - Last 24 hrs: Laboratory Results - last 24 hr 11/04/19 Range/Units 05:47 WBC 10.27 H (3.98-10.04) K/mm3 RBC 3.32 L (3.98-5.22) M/mm3 Hgb 9.2 L D (11.2-15.7) gm/dl Hct 29.5 L (34.1-44.9) % MCV 88.9 (79.4-94.8) fl MCH 27.7 (25.6-32.2) pg MCHC 31.2 L (32.2-35.5) g/dl RDW Std Deviation 45.1 (36.4-46.3) fL Plt Count 208 (182-369) K/mm3 MPV 10.5 (9.4-12.3) fl Neut % (Auto) 74.4 H (34.0-71.1) % Lymph % (Auto) 17.3 L (19.3-51.7) % Burt % (Auto) 6.0 (4.7-12.5) % Eos % (Auto) 1.7 (0.7-5.8) Baso % (Auto) 0.0 L (0.1-1.2) % Neut # (Auto) 7.64 H (1.56-6.13) K/mm3 Lymph # (Auto) 1.78 (1.18-3.74) K/mm3 Burt # (Auto) 0.62 H (0.24-0.36) K/mm3 Eos # (Auto) 0.17 (0.04-0.36) K/mm3 Baso # (Auto) 0.00 L (0.01-0.08) K/mm3 Med Orders - Current: Current Medications Diphenhydramine HCl (Benadryl) 25 mg IVPUSH Q6H PRN PRN Reason: Itching or Nausea Docusate Sodium (Colace) 100 mg PO BID PRN PRN Reason: Constipation Ephedrine Sulfate (Ephedrine Sulfate) 5 mg IVPUSH SEECOMMENT PRN PRN Reason: Other Ibuprofen (Motrin) 600 mg PO Q6H PRN PRN Reason: mild pain or fever Last Admin: 11/04/19 03:36 Dose: 600 mg Naloxone HCl (Narcan) 0.1 mg IVPUSH SEECOMMENT PRN PRN Reason: Respiratory Depression Oxycodone/Acetaminophen (Percocet 325-5 Mg) 1 tab PO Q4H PRN PRN Reason: Pain (moderate 4-6) Last Admin: 11/04/19 03:36 Dose: 1 tab Oxycodone/Acetaminophen (Percocet 325-5 Mg) 2 tab PO Q4H PRN PRN Reason: Pain (severe 7-10) Last Admin: 11/03/19 22:13 Dose: 2 tab Simethicone (Simethicone) 80 mg PO QIDACANDBED RONNY Last Admin: 11/03/19 22:12 Dose: 80 mg [place] (Tucks) 1 pad TOP ASDIRECTED PRN PRN Reason: Pain Discontinued Medications Acetaminophen (Tylenol) 975 mg PO Q4H PRN PRN Reason: Fever Last Admin: 11/02/19 19:05 Dose: 975 mg Bupivacaine HCl (Marcaine 0.5%) Confirm Administered Dose 30 ml .ROUTE .STK-MED ONE Stop: 11/02/19 22:24 Last Admin: 11/02/19 22:48 Dose: 20 ml Cefazolin Sodium (Ancef) Confirm Administered Dose 2 gm .ROUTE .STK-MED ONE Stop: 11/02/19 22:40 Citric Acid/Sodium Citrate (Bicitra Solution) 30 ml PO ONETIME ONE Stop: 11/02/19 22:05 Last Admin: 11/02/19 22:15 Dose: 30 ml Citric Acid/Sodium Citrate (Bicitra Solution) Confirm Administered Dose 30 ml .ROUTE .STK-MED ONE Stop: 11/02/19 22:09 Last Admin: 11/03/19 20:20 Dose: Not Given Diphenhydramine HCl (Benadryl) 25 mg IVPUSH Q6H PRN PRN Reason: Itching Diphenhydramine HCl (Benadryl) 25 mg IVPUSH Q6H PRN PRN Reason: pruritis Ephedrine Sulfate (Ephedrine Sulfate) 5 mg IVPUSH ASDIRECTED PRN PRN Reason: HYPOTENTSION Ephedrine Sulfate (Ephedrine Sulfate) 5 mg IVPUSH ASDIRECTED PRN PRN Reason: Hypotension Fentanyl (Sublimaze) 100 mcg EPIDUR Q3H PRN PRN Reason: Pain Fentanyl (Sublimaze) 100 mcg EPIDUR Q3H PRN PRN Reason: Pain Last Admin: 11/02/19 15:06 Dose: 100 mcg Fentanyl (Sublimaze) Confirm Administered Dose 100 mcg .ROUTE .STK-MED ONE Stop: 11/02/19 22:31 Last Admin: 11/03/19 20:20 Dose: Not Given Fentanyl/Bupivacaine HCl (Fentanyl/Bupivacaine/Ns 2 Mcg-0.125% 100 Ml) 0 ml EPIDUR CONTINUOUS PRN PRN Reason: Pain Fentanyl/Bupivacaine HCl (Fentanyl/Bupivacaine/Ns 2 Mcg-0.125% 100 Ml) 100 ml EPIDUR ASDIRECTED PRN PRN Reason: Pain Last Admin: 11/02/19 15:06 Dose: 100 ml Gentamicin Sulfate (Pharmacy To Dose - Gentamicin) 1 dose .XX ASDIRECTED [facility] Gentamicin Sulfate (Gentamicin) 1.5 mg IV .Pharmacy to Dose RONNY Lactated Ringer's (Ringers, Lactated) 1,000 mls @ 100 mls/hr IV ASDIRECTED RONNY Last Admin: 11/02/19 17:40 Dose: 100 mls/hr Oxytocin/Lactated Ringer's (Pitocin In Lr 10 Units/1,000 Ml) 10 unit in 1,000 mls @ 12 mls/hr IV TITRATE RONNY; Protocol Last Titration: 11/02/19 01:00 Dose: 20 munits/min, 120 mls/hr Oxytocin/Lactated Ringer's (Pitocin In Lr 10 Units/1,000 Ml) 10 unit in 1,000 mls @ 500 mls/hr IV .CONTINUOUS RONNY Oxytocin/Lactated Ringer's (Pitocin In Lr 20 Units/1,000 Ml) 20 unit in 1,000 mls @ 66 mls/hr IV TITRATE RONNY; Protocol Oxytocin/Lactated Ringer's (Pitocin In Lr 20 Units/1,000 Ml) 20 unit in 1,000 mls @ 66 mls/hr IV TITRATE RONNY; Protocol Last Admin: 11/02/19 02:37 Dose: 66 mls/hr Clindamycin Phosphate 900 mg/ (Sodium Chloride) 106 mls @ 200 mls/hr IV ONETIME ONE Stop: 11/02/19 19:16 Last Admin: 11/02/19 19:16 Dose: 200 mls/hr Gentamicin Sulfate 100 mg/ (Sodium Chloride) 102.5 mls @ 205 mls/hr IV ONETIME ONE Stop: 11/02/19 19:29 Last Admin: 11/02/19 20:23 Dose: 205 mls/hr Sodium Chloride (Normal Saline) Confirm Administered Dose 100 mls @ as directed .ROUTE .STK-MED ONE Stop: 11/02/19 19:00 Last Admin: 11/03/19 20:20 Dose: Not Given Azithromycin 500 mg/ Sodium (Chloride) 250 mls @ 250 mls/hr IV ONETIME ONE Stop: 11/02/19 23:08 Last Admin: 11/02/19 22:22 Dose: 250 mls/hr Lactated Ringer's (Ringers, Lactated) Confirm Administered Dose 1,000 mls @ as directed .ROUTE .STK-MED ONE Stop: 11/02/19 23:09 Dextrose/Lactated Ringer's (Dextrose 5%-Lactated Ringers) 1,000 mls @ 125 mls/ hr IV ASDIRECTED [facility] Stop: 11/03/19 08:25 Last Admin: 11/03/19 01:21 Dose: 125 mls/hr Clindamycin Phosphate 900 mg/ (Premix) 50 mls @ 100 mls/hr IV ONETIME ONE Stop: 11/03/19 01:14 Last Admin: 11/03/19 01:22 Dose: 100 mls/hr Gentamicin Sulfate 100 mg/ (Sodium Chloride) 102.5 mls @ 205 mls/hr IV ONETIME ONE Stop: 11/03/19 04:59 Last Admin: 11/03/19 04:31 Dose: 205 mls/hr Ketorolac Tromethamine (Toradol) 30 mg IVPUSH Q6H PRN PRN Reason: Pain Stop: 11/07/19 23:42 Ketorolac Tromethamine (Toradol) 30 mg IVPUSH Q6H [facility] Stop: 11/03/19 12:31 Last Admin: 11/03/19 12:32 Dose: 30 mg Metoclopramide HCl (Reglan) 10 mg IVPUSH ONETIME ONE Stop: 11/02/19 22:05 Last Admin: 11/02/19 22:14 Dose: 10 mg Metoclopramide HCl (Reglan) Confirm Administered Dose 10 mg .ROUTE .STK-MED ONE Stop: 11/02/19 22:09 Last Admin: 11/03/19 20:20 Dose: Not Given Morphine Sulfate (Duramorph Pf) Confirm Administered Dose 10 mg .ROUTE .STK-MED ONE Stop: 11/02/19 23:04 Ondansetron HCl (Zofran) 4 mg IVPUSH Q4H PRN PRN Reason: Nausea/Vomiting Oxytocin (Pitocin) Confirm Administered Dose 20 unit .ROUTE .STK-MED ONE Stop: 11/02/19 22:41 Sodium Chloride (Saline Flush) 10 ml FLUSH ASDIRECTED PRN PRN Reason: Keep Vein Open - Exam General: Reports: Alert, Oriented HEENT: Reports: Pupils Equal, Pupils Reactive, EOMI, Mucous Membr. Moist/[place] Neck: Reports: Supple Lungs: Reports: Clear to Auscultation, Normal Respiratory Effort Cardiovascular: Reports: Regular Rate, Regular Rhythm GI/Abdominal Exam: Soft Back Exam: Reports: Normal Inspection, Full Range of Motion Extremities: Normal Inspection, Normal Range of Motion, Non-Tender, No Pedal Edema, Normal Capillary Refill Skin: Reports: Warm, Dry, Intact Wound/Incisions: Reports: Healing Well Neurological: Reports: No New Focal Deficit Psy/Mental Status: Reports: Alert, Normal Affect, Normal Mood
[2019-11-04] MEDS: Acetaminophen/oxyCODONE 325-5 MG Tab PO PRN (08:51)
[2019-11-04] MEDS: Simethicone 80 MG Tab.Chew PO SCH (08:52)
== END 2019-11-04 12:15 | disposition home or self-care (01) | DRG 540 ==
LOC: JD.OB 16:40 → OBSVTOIN 11-02 22:54 → JD.OB 11-02 22:55
PROVIDERS: ADMIT Obstetrics & Gynecology; ATTEND Obstetrics & Gynecology
PROC: 3E0R3BZ Introduction of Anesthetic Agent into Spinal Canal, Percutaneous Approach (ICD-10-PCS; principal; 2019-11-02)
PROC: 10D00Z1 Extraction of Products of Conception, Low, Open Approach (ICD-10-PCS; 2019-11-02)
DX: O13.4 Gestational [pregnancy-induced] hypertension without significant proteinuria, complicating childbirth (principal); O76 Abnormality in fetal heart rate and rhythm complicating labor and delivery; O41.1230 Chorioamnionitis, third trimester, not applicable or unspecified; Z37.0 Single live birth; Z79.82 Long term (current) use of aspirin; Z79.899 Other long term (current) drug therapy
CPT/HCPCS: 01967; 01968; 36415; 51701; 51702; 59025; 80053; 82570; 84156; 85025; 86592; 86850; 86900; 86901; A9270-GY; J0456; J0690; J1580; J1885; J2270; J2590; J2765; J3010; J3490; J7050; J7120; J7121